=== PATIENT | female | born 1990 | race African-American/Black ===

== ENCOUNTER 2018-12-18 16:41 | Emergency (ER) | payer OTHER ==
[2018-12-18] MEDS ORDERED: CEPACOL SORE T1 EAC8 PO (18:01)
[2018-12-18] MEDS ORDERED: MOBIC7.5 MG PO (18:01)
[2018-12-18] MEDS ORDERED: PREDNISONE 20 M20 MG PO (18:01)
== END 2018-12-19 00:39 | disposition home or self-care (01) ==
LOC: ER 16:41
DX: J02.8 Acute pharyngitis due to other specified organisms (principal)